=== PATIENT | female | born 1990 | race Caucasian/White ===

== ENCOUNTER 2019-04-10 20:30 | Emergency (ER) | payer OTHER ==
[2019-04-10 20:41] VITALS: BP 122/70
--- NOTE | 2019-04-10 21:18 | UC ---
General HPI - HPI Summary HPI Summary: PT ARRIVES REQUESTING REFILL OF LETROZOLE FOR FERTILITY TREATMENTS. THIS MEDICATION IS TO BE TAKEN ONCE A DAY X 5 DAYS STARTING ON DAY 3 OF MENSES. PT STARTED MENSES YESTERDAY. STATES SHE CALLED HER MARKETING CO OP IN [place] BUT THE OFFICE IS CLOSED DUE TO HURRICANE JOSE F. BACKGROUND: PT USED TO LIVE IN [place], [place] AND HAS BEEN FOLLOWED BY THE SAME MARKETING CO OP FOR YEARS. MOVED TO [place] AUGUST 2018 FOR A MASTERS PROGRAM IN THE DEPARTMENT OF [employer] AT [place]. 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 DUE TO HER POSITION AT [place] SHE WAS ABLE TO FLY TO [place] EASILY SO CONTINUED TO SEE HER MARKETING CO OP THERE WHO STARTED HER ON LETROZOLE IN FEBRUARY. THE PLAN IS FOR HER TO TRY THIS FOR 6 MONTHS AND IF IS NOT ACHIEVED SHE WILL BE REFERRED FOR IVF. SHE HAS BEEN BACK IN [place] FOR 2 WEEKS SINCE THE END OF HER ASSOCIATE SALES AND REPORTS SHE HAS AN APPT WITH A FERTILITY CLINIC IN [place] IN MAY AND THAT HER MARKETING CO OP IN [place] WAS SUPPOSED TO BE CONTINUING HER TREATMENTS UNTIL SHE IS ESTABLISHED. HER MENSES ARE IRREGULAR GIVEN HER H/O PCOS. SO WHEN SHE STARTED HER MENSES YESTERDAY SHE CALLED HER MARKETING CO OP IN [place] BUT THE OFFICE IS CLOSED DUE TO HURRICANE JOSE F. SHE IS QUITE DISTRAUGHT THAT SHE MIGHT MISS A ROUND OF THE FERTILITY TREATMENTS AND IS HERE REQUESTING THE MEDICATION. SHE REPORTS NO ADVERSE REACTION TO THE MEDICINE IN THE PAST. - History of Current Complaint Chief Complaint: UCGU Stated Complaint: PERSONAL ISSUE Time Seen by Provider: 04/10/19 20:38 Hx Obtained From: Patient Hx Last Menstrual Period: 04/09/19 Pain Intensity: 0 Associated Signs & Symptoms: Positive: Other - FEELS WELL - Allergy/Home Medications Allergies/Adverse Reactions: Allergies Allergy/AdvReac Type Severity Reaction Status Date / Time codeine Allergy Vomiting Verified 04/10/19 20:42 PMH/Surg Hx/FS Hx/Imm Hx - Additional Past Medical History Additional PMH: PCOS - Surgical History Surgical History: None - Family History Known Family History: Positive: Non-Contributory - Social History Alcohol Use: None Substance Use Type: None Smoking Status (MU): Never Smoked Tobacco Review of Systems All Other Systems Reviewed And Are Negative: Yes Constitutional: Positive: Negative Skin: Positive: Negative Respiratory: Positive: Negative Cardiovascular: Positive: Negative Gastrointestinal: Positive: Negative Genitourinary: Positive: Negative Physical Exam Triage Information Reviewed: Yes Appearance: Well-Appearing, No Pain Distress, Well-Nourished Vital Signs: Initial Vital Signs Temp 97.0 F 04/10/19 20:38 Pulse 77 04/10/19 20:38 Resp 12 04/10/19 20:38 BP 122/70 04/10/19 20:38 Pulse Ox 100 04/10/19 20:38 Laboratory Tests 04/10/19 21:08 POC Ur Test Negative Vital Signs Reviewed: Yes Eyes: Positive: Conjunctiva Clear ENT: Positive: Hearing grossly normal Neck: Positive: Supple Respiratory: Positive: No respiratory distress, No accessory muscle use Cardiovascular: Positive: Pulses Normal Abdomen Description: Positive: Soft Musculoskeletal: Positive: No Edema Neurological: Positive: Alert Psychological: Positive: Age Appropriate Behavior Skin: Negative: Rashes Course/Dx - Course Course Of Treatment: WILL GIVE LETROZOLE 5MG DAILY X 5 DAYS. PT WILL F/U WITH HER MARKETING CO OP IN [place] ONCE THEY RE-OPEN WHICH SHE THINKS IS LIKELY TO BE SOMETIME NEXT WEEK. PT ADVISED THAT I AM WILLING TO GIVE HER THIS PRESCRIPTION ONE TIME BUT THAT SHE WILL NEED TO HAVE ANY FUTURE PRESCRIPTIONS FROM HER SPECIALISTS. SHE VERBALIZED UNDERSTANDING. - Diagnoses Provider Diagnosis: Medication refill Discharge ED - Sign-Out/Discharge Documenting (check all that apply): Patient Departure All imaging exams completed and their final reports reviewed: No Studies - Discharge Plan Condition: Stable Disposition: HOME Prescriptions: Letrozole 5 mg PO DAILY #10 tablet Referrals: [facility] [Provider Group] Additional Instructions: RX FOR LETROZOLE 5MG DAILY FOR 5 DAYS SENT TO [facility]. BE SURE TO CONTACT YOUR MARKETING CO OP IN [place] ONCE THEY RE-OPEN TO FURTHER DISCUSS YOUR PLAN OF CARE UNTIL YOU CAN BE SEEN BY YOUR NEW FERTILITY SPECIALIST IN [place] NEXT MONTH. - Billing Disposition and Condition Condition: STABLE Disposition: Home
== END 2019-04-10 21:27 | disposition home or self-care (01) ==
LOC: UCEAST 20:30
DX: N97.9 Female infertility, unspecified (principal); Z76.0 Encounter for issue of repeat prescription; Z88.5 Allergy status to narcotic agent
CPT/HCPCS: 84702; 99212; G0463

== ENCOUNTER 2019-08-31 19:41 | Emergency (ER) | payer OTHER ==
[2019-08-31 20:28] LABS: ABS Eosinophils 0.2 10^3/ul (0-0.6); ABS Lymphocytes 1.3 10^3/ul (1.0-4.8); ABS Monocytes 0.7 10^3/ul (0-0.8); ABS Neutrophils 5.8 10^3/ul (1.5-7.7); Hematocrit 34 % (35-47); Hemoglobin 11.7 g/dL (12.0-16.0); Lymphocyte % 16.1 %; Mean Corpuscular HGB Conc 35 g/dL (31-36); Mean Corpuscular Hemoglobin 31 pg (27-31); Mean Corpuscular Volume 89 fL (80-97); Mean Platelet Volume 8.5 fL (7.4-10.4); Nucleated Red Blood Cells % 0.1; Platelet Count 181 10^3/uL (150-450); Red Blood Count 3.82 10^6 /uL (3.70-4.87); Red Cell Distribution Width 14 % (10-15)
[2019-08-31] MEDS ORDERED: NS 0.9% 1000 ML** 1,000 ML IV ONE (20:30)
[2019-08-31 20:45] LABS: Activated Partial Thrombo Time 30.9 seconds (26.0-38.0); INR 1.03 (0.82-1.09)
[2019-08-31 20:51] LABS: Albumin 3.6 g/dL (3.2-5.2); Albumin/Globulin Ratio 1.2 (1-3); BUN/Creatinine Ratio 14.3 (8-20); Calcium 8.7 mg/dL (8.6-10.3); EGFR African American 180.7 (>60); EGFR Non-African American 149.3 (>60); Potassium 3.4 mmol/L (3.5-5.0); Total Bilirubin 0.3 mg/dL (0.2-1.0); Total Protein 6.6 g/dL (6.4-8.9)
--- NOTE | 2019-08-31 21:17 | ED ---
Abdominal Pain/Female - HPI Summary HPI Summary: 28 year old F presenting to [facility] complains of sharp right sided abdominal pain since being hit by a car door at around 0700 08/31/2019. Pt is currently 16.5 weeks into her second with her first one being a miscarriage in August 2017. Patient reports nausea all of today but states that she is walking and eating alright. Patient denies difficulty breathing, vaginal bleeding or discharge, bleeding, bruising and hematuria. The patient rates the pain 4/10 in severity. Symptoms aggravated by nothing. Symptoms alleviated by nothing. - History of Current Complaint Chief Complaint: EDOBProblems Stated Complaint: 16 WKS PREG/HIT IN THE STOMACH/ABD PAIN PER PT Time Seen by Provider: 08/31/19 20:07 Hx Obtained From: Patient Hx Last Menstrual Period: 04/09/19 Severity Currently: Moderate Pain Intensity: 4 Pain Scale Used: 0-10 Numeric Location: Discrete At: RUQ, Discrete At: RLQ Character: Sharp Aggravating Factor(s): Nothing Alleviating Factor(s): Nothing Associated Signs and Symptoms: Positive: Negative - no bleeding or bruising or difficulty breathing. Negative: Urinary Symptoms - no hematuria, Vaginal Bleeding, Vaginal Discharge Allergies/Adverse Reactions: Allergies Allergy/AdvReac Type Severity Reaction Status Date / Time codeine Allergy Vomiting Verified 04/10/19 20:42 PMH/Surg Hx/FS Hx/Imm Hx Previously Healthy: Yes History: Reports: Other Problems/Disorders - miscarriage in August History: Denies: Hx Legally Blind Infectious Disease History: No Infectious Disease History: Denies: Traveled Outside the US in Last 30 Days - Family History Known Family History: Positive: Non-Contributory - Social History Alcohol Use: None Substance Use Type: Reports: None Smoking Status (MU): Never Smoked Tobacco Review of Systems Respiratory: Negative - no pain with breathing Negative: Shortness Of Breath Positive: Abdominal Pain - right side Genitourinary: Negative - no vaginal bleeding or discharge Negative: hematuria Negative: Bruising All Other Systems Reviewed And Are Negative: Yes Physical Exam - Summary Physical Exam Summary: Constitutional: Well-developed, Well-nourished, Alert. (-) Distressed Skin: Warm, Dry HENT: Normocephalic; Atraumatic Eyes: Conjunctiva normal Neck: Musculoskeletal ROM normal neck. (-) JVD, (-) Stridor, (-) Tracheal deviation Cardio: Rhythm regular, rate normal, Heart sounds normal; Intact distal pulses; The pedal pulses are 2+ and symmetric. Radial pulses are 2+ and symmetric. (-) Murmur Pulmonary/Chest wall: Effort normal. (-) Respiratory distress, (-) Wheezes, (-) Rales Abd: tenderness in RLQ, no rebound or guarding, fundus appropriate for age Musculoskeletal: (-) Edema Lymph: (-) Cervical adenopathy Neuro: Alert, Oriented x3 Psych: Mood and affect Normal Triage Information Reviewed: Yes Vital Signs On Initial Exam: Initial Vitals Temp Pulse Resp BP Pulse Ox 99.6 F 87 18 130/76 97 08/31/19 19:42 08/31/19 19:42 08/31/19 19:42 08/31/19 19:42 08/31/19 19:42 Vital Signs Reviewed: Yes Procedures - Sedation Patient Received Moderate/Deep Sedation with Procedure: No Diagnostics - Vital Signs Vital Signs Temp Pulse Resp BP Pulse Ox 08/31/19 19:42 99.6 F 87 18 130/76 97 - Laboratory Lab Results: Lab Results 08/31/19 08/31/19 08/31/19 Range/Units 20:19 20:20 20:20 WBC 8.0 (3.5-10.8) 10^3/uL RBC 3.82 (3.70-4.87) 10^6 /uL Hgb 11.7 L (12.0-16.0) g/dL Hct 34 L (35-47) % MCV 89 (80-97) fL MCH 31 (27-31) pg MCHC 35 (31-36) g/dL RDW 14 (10-15) % Plt Count 181 (150-450) 10^3/uL MPV 8.5 (7.4-10.4) fL Neut % (Auto) 73.1 % Lymph % (Auto) 16.1 % [place] % (Auto) 8.6 % Eos % (Auto) 2.0 % Baso % (Auto) 0.2 % Absolute Neuts (auto) 5.8 (1.5-7.7) 10^3/ul Absolute Lymphs (auto) 1.3 (1.0-4.8) 10^3/ul Absolute Monos (auto) 0.7 (0-0.8) 10^3/ul Absolute Eos (auto) 0.2 (0-0.6) 10^3/ul Absolute Basos (auto) 0.0 (0-0.2) 10^3/ul Absolute Nucleated RBC 0.0 10^3/ul Nucleated RBC % 0.1 INR (Anticoag Therapy) 1.03 (0.82-1.09) APTT 30.9 (26.0-38.0) seconds Sodium (135-145) mmol/L Potassium (3.5-5.0) mmol/L Chloride (101-111) mmol/L Carbon Dioxide (22-32) mmol/L Anion Gap (2-11) mmol/L BUN (6-24) mg/dL Creatinine (0.51-0.95) mg/dL Est GFR ( Amer) (>60) Est GFR (Non-Af Amer) (>60) BUN/Creatinine Ratio (8-20) Glucose (70-100) mg/dL Calcium (8.6-10.3) mg/dL Total Bilirubin (0.2-1.0) mg/dL AST (13-39) U/L ALT (7-52) U/L Alkaline Phosphatase (34-104) U/L Total Protein (6.4-8.9) g/dL Albumin (3.2-5.2) g/dL Globulin (2-4) g/dL Albumin/Globulin Ratio (1-3) Blood Type O Positive Antibody Screen Pending 08/31/19 Range/Units 20:20 WBC (3.5-10.8) 10^3/uL RBC (3.70-4.87) 10^6 /uL Hgb (12.0-16.0) g/dL Hct (35-47) % MCV (80-97) fL MCH (27-31) pg MCHC (31-36) g/dL RDW (10-15) % Plt Count (150-450) 10^3/uL MPV (7.4-10.4) fL Neut % (Auto) % Lymph % (Auto) % [place] % (Auto) % Eos % (Auto) % Baso % (Auto) % Absolute Neuts (auto) (1.5-7.7) 10^3/ul Absolute Lymphs (auto) (1.0-4.8) 10^3/ul Absolute Monos (auto) (0-0.8) 10^3/ul Absolute Eos (auto) (0-0.6) 10^3/ul Absolute Basos (auto) (0-0.2) 10^3/ul Absolute Nucleated RBC 10^3/ul Nucleated RBC % INR (Anticoag Therapy) (0.82-1.09) APTT (26.0-38.0) seconds Sodium 135 (135-145) mmol/L Potassium 3.4 L (3.5-5.0) mmol/L Chloride 103 (101-111) mmol/L Carbon Dioxide 26 (22-32) mmol/L Anion Gap 6 (2-11) mmol/L BUN 7 (6-24) mg/dL Creatinine 0.49 L (0.51-0.95) mg/dL Est GFR ( Amer) 180.7 (>60) Est GFR (Non-Af Amer) 149.3 (>60) BUN/Creatinine Ratio 14.3 (8-20) Glucose 90 (70-100) mg/dL Calcium 8.7 (8.6-10.3) mg/dL Total Bilirubin 0.30 (0.2-1.0) mg/dL AST 15 (13-39) U/L ALT 14 (7-52) U/L Alkaline Phosphatase 43 (34-104) U/L Total Protein 6.6 (6.4-8.9) g/dL Albumin 3.6 (3.2-5.2) g/dL Globulin 3.0 (2-4) g/dL Albumin/Globulin Ratio 1.2 (1-3) Blood Type Antibody Screen Result Diagrams: 08/31/19 20:20 08/31/19 20:20 Lab Statement: Any lab studies that have been ordered have been reviewed, and results considered in the medical decision making process. - Ultrasound US Abd Ultrasound Interpretation Completed By: Radiologist Summary of Ultrasound Findings: IMPRESSION: No visible free fluid or hemorrhage in the 4 quadrants of the abdomen including the region of pain in the right lower quadrant. ED physician has reviewed this report. US Ultrasound Interpretation Completed By: Radiologist Summary of Ultrasound Findings: IMPRESSION: 1. There is a single living intrauterine of sonographic gestational. age 17 weeks 1 day, YUMI February 07, 2020. 2. The placental position is anterior with no evidence for retroplacental. hemorrhage. ED physician has reviewed this report. Abdominal Pain Fem Course/Dx - Course Course Of Treatment: 28 year old F presenting to [facility] complains of sharp right sided abdominal pain since being hit by a car door at around 0700 08/31/2019. Pt is currently 16.5 weeks into her second with her first one being a miscarriage in August 2017. Physical exam findings: tenderness in RLQ, no rebound or guarding, fundus appropriate for age. Bloodwork results with no significant abnormalities except for L Hgb, L Hct, L potassium, L Creatinine. Urinalysis results with no significant abnormalities except for L Ur Specific [place]. US Abd shows, per radiologist:No visible free fluid or hemorrhage in the 4 quadrants of the abdomen including the region of pain in the right lower quadrant. US shows, per radiologist: 1. There is a single living intrauterine of sonographic gestational age 17 weeks 1 day, YUMI February 07, 2020. 2. The placental position is anterior with no evidence for retroplacental hemorrhage. In the ED course, the patient was given Ns, Potassium Chlor Tab 20 meq. Patient will be discharged home with follow up with their [facility]. Patient was instructed to return to Emergency Department for new or worsening symptoms. Patient understands and is agreeable to this plan. - Diagnoses Provider Diagnoses: Abdominal trauma, , Blunt trauma to abdomen Discharge ED - Sign-Out/Discharge Documenting (check all that apply): Patient Departure - discharge - Discharge Plan Condition: Stable Disposition: HOME Patient Education Materials: Blunt Abdominal Injury (ED) Print Language: JAPANESE Referrals: No Primary Care Phys,NOPCP [Primary Care Provider] - Additional Instructions: You need to return to the ED if abdominal pain worsens or you develop vaginal bleeding. Otherwise, follow-up with your [facility]. - Billing Disposition and Condition Condition: STABLE Disposition: Home - Attestation Statements Document Initiated by Scribe: Yes Documenting Scribe: Gordo Hernandez Provider For Whom Scribe is Documenting (Include Credential): Aidee Edwards MD Scribe Attestation: Gordo Jeffers, scribed for Aidee Brar MD on 09/02/19 at 0429. Scribe Documentation Reviewed: Yes Provider Attestation: The documentation as recorded by the scribe, Gordo Hernandez accurately reflects the service I personally performed and the decisions made by me, Aidee Brar MD Status of Scribe Document: Viewed
[2019-08-31] MEDS ORDERED: Potassium Chlor TAB* 20 MEQ TAB.ER PO ONE (22:34)
[2019-08-31 23:39] LABS: Urine Appearance Clear; Urine Bilirubin Negative (Negative); Urine Blood Negative (Negative); Urine Color Straw; Urine Glucose Negative (Negative); Urine Ketones Negative (Negative); Urine Nitrite Negative (Negative); Urine Protein Negative (Negative); Urine Specific Gravity 1.008 (1.010-1.030); Urine Urobilinogen Negative (Negative)
[2019-08-31 23:51] VITALS: BP 118/79
== END 2019-08-31 23:51 | disposition home or self-care (01) ==
LOC: ED 19:41
DX: O9A.212 Injury, poisoning and certain other consequences of external causes complicating pregnancy, second trimester (principal); S39.91XA Unspecified injury of abdomen, initial encounter; R10.31 Right lower quadrant pain; Z3A.17 17 weeks gestation of pregnancy; W22.8XXA Striking against or struck by other objects, initial encounter; Y92.9 Unspecified place or not applicable; Z88.5 Allergy status to narcotic agent
CPT/HCPCS: 36415; 76705; 76815; 80053; 81003; 83030; 85025; 85610; 85730; 86850; 86900; 86901; 96360; 99282; A9270-GY

== ENCOUNTER 2019-09-14 14:00 | Emergency (ER) | payer OTHER ==
[2019-09-14 15:02] LABS: ABS Eosinophils 0.1 10^3/ul (0-0.6); ABS Lymphocytes 1.3 10^3/ul (1.0-4.8); ABS Monocytes 0.5 10^3/ul (0-0.8); ABS Neutrophils 4.2 10^3/ul (1.5-7.7); Eosinophil % 1.1 %; Hematocrit 35 % (35-47); Hemoglobin 12.2 g/dL (12.0-16.0); Lymphocyte % 20.6 %; Mean Corpuscular HGB Conc 35 g/dL (31-36); Mean Corpuscular Hemoglobin 32 pg (27-31); Mean Corpuscular Volume 90 fL (80-97); Mean Platelet Volume 8.5 fL (7.4-10.4); Nucleated Red Blood Cells % 0.1; Platelet Count 170 10^3/uL (150-450); Red Blood Count 3.86 10^6 /uL (3.70-4.87); Red Cell Distribution Width 14 % (10-15); White Blood Count 6.1 10^3/uL (3.5-10.8)
[2019-09-14 15:07] LABS: INR 1.03 (0.82-1.09)
[2019-09-14 15:07] LABS: Urine Appearance Cloudy; Urine Bilirubin Negative (Negative); Urine Blood 3+ (Negative); Urine Color Straw; Urine Glucose Negative (Negative); Urine Ketones Negative (Negative); Urine Nitrite Negative (Negative); Urine Protein Negative (Negative); Urine Specific Gravity 1.003 (1.010-1.030); Urine Urobilinogen Negative (Negative)
[2019-09-14 15:24] LABS: Urine Bacteria Absent (Absent); Urine Red Blood Cell 3+(>10/hpf) (Absent); Urine Squamous Epithelial Cell Present (Absent); Urine White Blood Cell Absent (Absent)
[2019-09-14 15:29] LABS: Albumin 3.8 g/dL (3.2-5.2); Albumin/Globulin Ratio 1.2 (1-3); BUN/Creatinine Ratio 17.6 (8-20); Calcium 9.4 mg/dL (8.6-10.3); EGFR African American 172.5 (>60); EGFR Non-African American 142.6 (>60); Globulin 3.2 g/dL (2-4); Potassium 3.7 mmol/L (3.5-5.0); Total Bilirubin 0.3 mg/dL (0.2-1.0)
--- NOTE | 2019-09-14 16:36 | ED ---
- HPI Summary HPI Summary: This patient is a 28-year-old otherwise healthy female 18 week female presenting to the ED with concern for vaginal bleeding. She states she passed a blood clot earlier this afternoon and is now having abdominal cramping. She states the cramping is rated a 3/10 moreover into the left upper quadrant and wrapping around the bilateral lower quadrants. Denies fevers. Denies any nausea or vomiting. Denies any vaginal discharge or other vaginal bleeding. She states this is been a normal for her and she remains on vitamins. No contractions. Her CURATORIAL SPECIALIST is in [place]. She states she was able to call CURATORIAL SPECIALIST office who recommended she come to the ED for an ultrasound. She has never had bleeding during her . Nonsmoker, no alcohol use. No other medications. - History of Current Complaint Chief Complaint: EDOBProblems Stated Complaint: 18 WEEKS PREG-BLEEDING PER PT Time Seen by Provider: 09/14/19 14:36 Hx Obtained From: Patient Onset/Duration: Started Hours Ago Timing: Lasting Seconds Severity: Moderate Pain Intensity: 3 Location of Pain: Left Side Character: None Associated Signs and Symptoms: Positive: Vaginal Bleeding or Discharge. Negative: Appetite, Back Pain, Fever, Genital Swelling or Blisters, Retained Foreign Body (Specify), Urinary Symptoms - Assessment Hx Now: Yes Hx Pelvic Inflammatory Disease: No Vaginal Bleeding Amount: Scant - 1 clot Contraction Intensity: No Contractions Contraction Pattern: No Contractions Hx Hysterectomy: No History of STI/STD: No - Risk Factors Ovarian Torsion Risk Factor: Reproductive Age - Allergies/Home Medications Allergies/Adverse Reactions: Allergies Allergy/AdvReac Type Severity Reaction Status Date / Time codeine Allergy Vomiting Verified 09/14/19 14:49 morphine Allergy Vomiting Verified 09/14/19 14:49 Home Medications: Home Medications Amoxicillin PO (*) [Amoxicillin 500 MG CAP*] 500 mg PO TID 09/14/19 [History Confirmed 09/14/19] Vits96/Iron Fum/Folic [ Tablets 27-0.8 mg] 1 tab PO DAILY 09/14 [History Confirmed 09/14/19] PMH/Surg Hx/FS Hx/Imm Hx Previously Healthy: Yes History: Reports: Other Problems/Disorders - miscarriage in August History: Denies: Hx Legally Blind Opthamlomology History: Denies: Hx Legally Blind - Immunization History Hx Pertussis Vaccination: No Immunizations Up to Date: Yes Infectious Disease History: No Infectious Disease History: Denies: Traveled Outside the US in Last 30 Days - Family History Known Family History: Positive: Non-Contributory - Social History Occupation: Employed Full-time Lives: With Family Alcohol Use: None Hx Substance Use: No Substance Use Type: Reports: None Smoking Status (MU): Never Smoked Tobacco Review of Systems Negative: Fever, Chills, Fatigue, Skin Diaphoresis Negative: Palpitations, Chest Pain Negative: Shortness Of Breath, Cough Positive: Abdominal Pain. Negative: Vomiting, Diarrhea, Nausea Genitourinary: Negative Positive: no symptoms reported, see HPI, other - passing 1 blot clot Negative: Rash, Bruising Neurological/Mental Status: Negative All Other Systems Reviewed And Are Negative: Yes Physical Exam - Physical Exam Triage Information Reviewed: Yes Vital Signs Reviewed: Yes Appearance: Positive: Well-Appearing, Well-Nourished Skin: Positive: Warm, Skin Color Reflects Adequate Perfusion Head/Face: Positive: Normal Head/Face Inspection Eyes: Positive: EOMI, ALEX, Conjunctiva Clear Neck: Positive: Supple, Nontender, No Lymphadenopathy Respiratory/Lung Sounds: Positive: Clear to Auscultation, Breath Sounds Present Cardiovascular: Positive: RRR, Pulses are Symmetrical in both Upper and Lower Extremities Pelvic Exam: Other - 1 clot passed - no active bleeding Musculoskeletal: Positive: Normal, Strength/ROM Intact Neurological: Positive: Sensory/Motor Intact, Alert, Oriented to Person Place, Time, Speech Normal Psychiatric: Positive: Normal, Affect/Mood Appropriate AVPU Assessment: Alert Procedures - Sedation Patient Received Moderate/Deep Sedation with Procedure: No Diagnostics - Vital Signs Vital Signs Temp Pulse Resp BP Pulse Ox 09/14/19 16:15 72 100/67 98 09/14/19 16:01 69 100 09/14/19 15:45 70 107/71 98 09/14/19 15:15 63 103/65 98 09/14/19 15:01 67 97 09/14/19 14:45 69 106/69 99 09/14/19 14:44 71 09/14/19 14:10 98.5 F 71 18 113/66 98 - Laboratory Lab Results: Lab Results 09/14/19 09/14/19 09/14/19 Range/Units 14:48 14:48 14:48 WBC 6.1 (3.5-10.8) 10^3/uL RBC 3.86 (3.70-4.87) 10^6 /uL Hgb 12.2 (12.0-16.0) g/dL Hct 35 (35-47) % MCV 90 (80-97) fL MCH 32 H (27-31) pg MCHC 35 (31-36) g/dL RDW 14 (10-15) % Plt Count 170 (150-450) 10^3/uL MPV 8.5 (7.4-10.4) fL Neut % (Auto) 69.4 % Lymph % (Auto) 20.6 % [place] % (Auto) 8.7 % Eos % (Auto) 1.1 % Baso % (Auto) 0.2 % Absolute Neuts (auto) 4.2 (1.5-7.7) 10^3/ul Absolute Lymphs (auto) 1.3 (1.0-4.8) 10^3/ul Absolute Monos (auto) 0.5 (0-0.8) 10^3/ul Absolute Eos (auto) 0.1 (0-0.6) 10^3/ul Absolute Basos (auto) 0.0 (0-0.2) 10^3/ul Absolute Nucleated RBC 0.0 10^3/ul Nucleated RBC % 0.1 INR (Anticoag Therapy) 1.03 (0.82-1.09) Sodium 136 (135-145) mmol/L Potassium 3.7 (3.5-5.0) mmol/L Chloride 102 (101-111) mmol/L Carbon Dioxide 28 (22-32) mmol/L Anion Gap 6 (2-11) mmol/L BUN 9 (6-24) mg/dL Creatinine 0.51 (0.51-0.95) mg/dL Est GFR ( Amer) 172.5 (>60) Est GFR (Non-Af Amer) 142.6 (>60) BUN/Creatinine Ratio 17.6 (8-20) Glucose 79 (70-100) mg/dL Calcium 9.4 (8.6-10.3) mg/dL Total Bilirubin 0.30 (0.2-1.0) mg/dL AST 16 (13-39) U/L ALT 18 (7-52) U/L Alkaline Phosphatase 51 (34-104) U/L Total Protein 7.0 (6.4-8.9) g/dL Albumin 3.8 (3.2-5.2) g/dL Globulin 3.2 (2-4) g/dL Albumin/Globulin Ratio 1.2 (1-3) Beta HCG, Quant 26431.00 mIU/mL Urine Color Urine Appearance Urine pH (5-9) Ur Specific [place] (1.010-1.030) Urine Protein (Negative) Urine Ketones (Negative) Urine Blood (Negative) Urine Nitrate (Negative) Urine Bilirubin (Negative) Urine Urobilinogen (Negative) Ur Leukocyte Esterase (Negative) Urine WBC (Auto) (Absent) Urine RBC (Auto) (Absent) Ur Squamous Epith Cells (Absent) Urine Bacteria (Absent) Urine Glucose (Negative) Blood Type Antibody Screen 09/14/19 09/14/19 Range/Units 14:48 14:55 WBC (3.5-10.8) 10^3/uL RBC (3.70-4.87) 10^6 /uL Hgb (12.0-16.0) g/dL Hct (35-47) % MCV (80-97) fL MCH (27-31) pg MCHC (31-36) g/dL RDW (10-15) % Plt Count (150-450) 10^3/uL MPV (7.4-10.4) fL Neut % (Auto) % Lymph % (Auto) % [place] % (Auto) % Eos % (Auto) % Baso % (Auto) % Absolute Neuts (auto) (1.5-7.7) 10^3/ul Absolute Lymphs (auto) (1.0-4.8) 10^3/ul Absolute Monos (auto) (0-0.8) 10^3/ul Absolute Eos (auto) (0-0.6) 10^3/ul Absolute Basos (auto) (0-0.2) 10^3/ul Absolute Nucleated RBC 10^3/ul Nucleated RBC % INR (Anticoag Therapy) (0.82-1.09) Sodium (135-145) mmol/L Potassium (3.5-5.0) mmol/L Chloride (101-111) mmol/L Carbon Dioxide (22-32) mmol/L Anion Gap (2-11) mmol/L BUN (6-24) mg/dL Creatinine (0.51-0.95) mg/dL Est GFR ( Amer) (>60) Est GFR (Non-Af Amer) (>60) BUN/Creatinine Ratio (8-20) Glucose (70-100) mg/dL Calcium (8.6-10.3) mg/dL Total Bilirubin (0.2-1.0) mg/dL AST (13-39) U/L ALT (7-52) U/L Alkaline Phosphatase (34-104) U/L Total Protein (6.4-8.9) g/dL Albumin (3.2-5.2) g/dL Globulin (2-4) g/dL Albumin/Globulin Ratio (1-3) Beta HCG, Quant mIU/mL Urine Color Straw Urine Appearance Cloudy Urine pH 6.0 (5-9) Ur Specific [place] 1.003 L (1.010-1.030) Urine Protein Negative (Negative) Urine Ketones Negative (Negative) Urine Blood 3+ A (Negative) Urine Nitrate Negative (Negative) Urine Bilirubin Negative (Negative) Urine Urobilinogen Negative (Negative) Ur Leukocyte Esterase Negative (Negative) Urine WBC (Auto) Absent (Absent) Urine RBC (Auto) 3+(>10/hpf) A (Absent) Ur Squamous Epith Cells Present A (Absent) Urine Bacteria Absent (Absent) Urine Glucose Negative (Negative) Blood Type O Positive Antibody Screen Negative Result Diagrams: 09/14/19 14:48 09/14/19 14:48 Lab Statement: Any lab studies that have been ordered have been reviewed, and results considered in the medical decision making process. Course/Dx - Course Course Of Treatment: This patient's evaluated for passing a blood clot and abdominal cramping which started this afternoon. Patient states she feels otherwise well, however is endorsing abdominal cramping and a 3/10. She is not had any more bleeding since that time. She is feeling improved, but cramping remained. Impression shows viable appearing single intrauterine gestation in breech presentation. Estimated gestational age based on this exam is 19 weeks 0 days greater than the expected 17 weeks 1 day based on the earliest ultrasound of August 23. Normal movement and cardiac activity. Normal amniotic fluid volume. Negative for placenta previa. No rios- gestational hemorrhage evident. Labs obtained and are unremarkable. 3+ blood and urine. On reexamination, patient is asymptomatic. She states she feels no cramping at this time. She will be discharged in good condition with a diagnosis of vaginal bleeding in otherwise normal . - Differential Diagnosis/HQI/PQRI: Vaginal Bleeding - Diagnoses Provider Diagnoses: Vaginal bleeding Discharge ED - Sign-Out/Discharge Documenting (check all that apply): Patient Departure - Discharge Plan Condition: Stable Disposition: HOME Patient Education Materials: (ED) Referrals: No Primary Care Phys,NOPCP [Primary Care Provider] - Additional Instructions: Please follow up with your OBGYN - Billing Disposition and Condition Condition: STABLE Disposition: Home
[2019-09-14 16:49] VITALS: BP 101/72
== END 2019-09-14 16:48 | disposition home or self-care (01) ==
LOC: ED 14:00
DX: O20.9 Hemorrhage in early pregnancy, unspecified (principal); Z3A.19 19 weeks gestation of pregnancy; Z88.5 Allergy status to narcotic agent
CPT/HCPCS: 36415; 76815; 80053; 81003; 81015; 84702; 85025; 85610; 86850; 86900; 86901; 99283